=== PATIENT | male | born 1990 | race African-American/Black ===

== ENCOUNTER → 2025-03-31 10:07 | Outpatient (BNVA) | payer OTHER, SELFPAY | PROVIDERS: Visit Provider Physician Assistant Medical | DX: S60.511A Abrasion of right hand, initial encounter (principal); W50.4XXA Accidental scratch by another person, initial encounter | CPT/HCPCS: 99203 ==

== ENCOUNTER → 2025-04-02 09:30 | Outpatient (BNVA) | payer OTHER, SELFPAY | PROVIDERS: Visit Provider Physician Assistant Medical | DX: S60.511A Abrasion of right hand, initial encounter (principal); W50.4XXA Accidental scratch by another person, initial encounter | CPT/HCPCS: 99213 ==